=== PATIENT | male | born 1975 | race Caucasian/White ===

== ENCOUNTER 2021-07-15 17:14 | Emergency (ER) | payer SELFPAY ==
[~2021-07-15] VITALS: Ht 167.6 cm; Wt 163.0 kg
[~2021-07-15 17:14] MED LIST: IBUP-779; TYLENOL #3
[2021-07-15 20:10] LABS: BASOPHILS % 0.3 % (0.0-2.0); HEMATOCRIT. 40.6 % (42.0-52.0); HEMOGLOBIN. 12.9 g/dL (14.0-18.0); LYMPHOCYTES % 12.1 % (20.0-50.0); MEAN CORPUSCULAR HEMOGLOBIN 25.3 pg (28.0-32.0); MEAN CORPUSCULAR VOLUME 79.3 fL (80.0-94.0); MEAN PLATELET VOLUME 9.6 fl (7.4-10.4); NEUTROPHILS % 77.6 % (40.0-76.0); PLATELET 254 x1000/uL (130-400); RED BLOOD CELL COUNT 5.12 mill/uL (4.7-6.1); RED CELL DISTRIBUTION WIDTH 16.7 % (11.6-14.6)
[2021-07-15 20:16] LABS: CHLORIDE 101 mEq/L (98-107)
[2021-07-15 20:17] LABS: INR 1.2; PROTHROMBIN TIME 12.4 sec (9.6-11.0)
[2021-07-15 23:21] LABS: CLARITY URINE CLOUDY (CLEAR); COLOR URINE DARK YELLOW (YELLOW); KETONES URINE 1+ (NEGATIVE); LEUKOCYTE ESTERASE URINE NEGATIVE (NEGATIVE); NITRITE URINE NEGATIVE (NEGATIVE); OCCULT BLOOD URINE TRACE (NEGATIVE); PROTEIN URINE 3+ (NEGATIVE)
[2021-07-16] MEDS ORDERED: SODIUM CHLORIDE 0.9% 1,000 ML IV ONE ×2 (01:15)
[2021-07-16] MEDS ORDERED: IMOD MT (01:42)
[2021-07-16 03:45] VITALS: BP 141/87
== END 2021-07-16 03:55 | disposition home or self-care (01) ==
LOC: ER 17:19
DX: R42 Dizziness and giddiness (principal); E86.0 Dehydration; N28.9 Disorder of kidney and ureter, unspecified; E11.9 Type 2 diabetes mellitus without complications; Z98.890 Other specified postprocedural states
CPT/HCPCS: 36415; 71045; 74176; 80053; 81003; 82962; 83690; 83880; 84484; 85025; 85610; 87040; 93005; 96360; 99285; J7030; Z7610

== ENCOUNTER 2021-07-24 10:14 | Emergency (ER) | payer OTHER ==
[~2021-07-24] VITALS: Ht 167.6 cm; Wt 153.0 kg
[~2021-07-24 10:14] MED LIST changes: +IMOD MT
[2021-07-24] MEDS ORDERED: BACITRACIN ZINC OINT UDPKT TOP ONE (12:15)
[2021-07-24 14:47] VITALS: BP 143/73
== END 2021-07-24 14:47 | disposition home or self-care (01) ==
LOC: ER 10:14
DX: L03.116 Cellulitis of left lower limb (principal); E11.9 Type 2 diabetes mellitus without complications
CPT/HCPCS: 82962; 99282

== ENCOUNTER 2021-07-26 09:51 | Emergency (ER) | payer OTHER ==
[~2021-07-26] VITALS: Ht 167.6 cm; Wt 157.0 kg
[2021-07-26 09:59] VITALS: BP 119/74
[2021-07-26] MEDS ORDERED: BACITRACIN ZINC OINT UDPKT TOP ONE (10:30)
== END 2021-07-26 11:07 | disposition home or self-care (01) ==
LOC: ER 09:55
DX: Z48.00 Encounter for change or removal of nonsurgical wound dressing (principal); L03.116 Cellulitis of left lower limb; E11.9 Type 2 diabetes mellitus without complications
CPT/HCPCS: 82962; 99283